=== PATIENT | male | born 1990 | race African-American/Black ===

== ENCOUNTER 2022-09-22 08:15 | Outpatient (CLI) | payer OTHER ==
--- NOTE | 2022-09-26 14:34 | MRI Report ---
PROCEDURE: KNEE WO - RT INDICATIONS: INJURY OF RIGHT LOWER LEG, WELLING, INSTABILITY TECHNIQUE: Noncontrast sagittal PD fast spin echo and T2 fast spin echo with fat saturation, sagittal 3-D gradie nt sequence with fat saturation; coronal T1 spin echo and PD fast spin echo with fat saturation, and axial PD fast spin echo with fat saturation through the knee. COMPARISON: None. FINDINGS: Image quality: Excellent. Menisci: The medial and lateral menisci demonstrate normal morphology and internal signal. The meni scal root ligaments appear intact. Cruciate ligaments: The anterior and posterior cruciate ligaments are intact. Medial structures: The medial collateral ligament appears thickened. The posterior oblique ligament , semimembranosus tendon insertions, and oblique popliteal ligament, and meniscocapsular junction anahi ear intact. Visualized portions of the pes anserinus tendons appear normal. No abnormal bursal flui d. Lateral structures: The lateral collateral ligament, long and short heads of the biceps femoris tend on appear intact. The popliteus tendon appears normal; the popliteofibular ligament appears intact. Iliotibial band appears normal. Anterior structures: The quadriceps tendon is intact. Proximal patella tendinosis and low-grade part ial-thickness tear at its inferior patellar insertion is seen. Patellar alignment is normal. No fem oral trochlear dysplasia or ventral trochlear prominence. No edema in the infrapatellar fat pad. Bones and cartilage: No bone marrow contusions or fractures. The cartilage of the medial and latera l femorotibial compartments, as well as the patellofemoral compartment, appears normal in thickness. Joint space: There is physiologic knee joint fluid. Tiny Beach's cyst. Normal appearing synovial pl icae are incidentally noted. IMPRESSION: 1. Low to moderate grade MCL sprain. The cruciate ligaments are intact. 2. No evidence of focal meniscal tear. 3. Tendinosis and low-grade partial-thickness tear involving proximal patella tendon at its inferior patella insertion. Quadriceps tendon is intact. 4. No marrow edema. No fracture or dislocation. Articulating cartilages are intact. Trace joint effus ion and tiny Beach's cyst. Reviewed by: Adolfo Dugan MD on 09/26/2022 2:32 PM PDT Approved by: Adolfo Dugan MD on 09/26/2022 2:32 PM PDT Station ID: [id number]
== END 2022-09-22 08:16 | disposition home or self-care (01) ==
LOC: DI 08:15
PROVIDERS: ATTEND Student in an Organized Health Care Education/Training Program
DX: S83.411A Sprain of medial collateral ligament of right knee, initial encounter (principal); S76.111A Strain of right quadriceps muscle, fascia and tendon, initial encounter; M25.461 Effusion, right knee; M71.21 Synovial cyst of popliteal space [Baker], right knee